=== PATIENT | male | born 1965 | race Caucasian/White ===

== ENCOUNTER 2022-06-22 08:34 | Emergency (ER) | payer MEDICAID ==
[~2022-06-22] VITALS: Ht 170.2 cm; Wt 64.0 kg
[2022-06-22] MEDS ORDERED: LORAZEPAM 2MG/ML CPJ IV ONE (09:15)
[2022-06-22] MEDS ORDERED: SODIUM CHLORIDE 0.9% 1,000 ML IV ONE (09:15)
[2022-06-22 09:20] LABS: BASOPHILS % 0.6 % (0.0-2.0); EOSINOPHILS % 3.5 % (0.0-5.0); HEMATOCRIT. 36.8 % (42.0-52.0); LYMPHOCYTES % 16.6 % (20.0-50.0); MEAN CORPUSCULAR HEMOGLOBIN 28.3 pg (28.0-32.0); MONOCYTES % 9.7 % (2.0-8.0); NEUTROPHILS % 69.6 % (40.0-76.0); PLATELET 492 x1000/uL (130-400); RED CELL DISTRIBUTION WIDTH 14.7 % (11.6-14.6)
[2022-06-22 09:33] LABS: CHLORIDE 96 mEq/L (98-107)
[2022-06-22 11:00] VITALS: BP 134/71
== END 2022-06-22 11:49 | disposition home or self-care (01) ==
LOC: ER 08:34
DX: F41.9 Anxiety disorder, unspecified (principal); E87.1 Hypo-osmolality and hyponatremia; R10.13 Epigastric pain; Z86.39 Personal history of other endocrine, nutritional and metabolic disease
CPT/HCPCS: 36415; 80053; 83690; 84443; 85025; 93005; 96361; 96374; 99284; J2060; J7030

== ENCOUNTER 2022-06-23 09:14 | Emergency (ER) | payer MEDICAID ==
[~2022-06-23] VITALS: Ht 167.6 cm; Wt 76.0 kg
[2022-06-23] MEDS ORDERED: LORAZEPAM 1MG TABLET PO NR (11:45)
[2022-06-23 12:40] VITALS: BP 122/82
== END 2022-06-23 12:45 | disposition home or self-care (01) ==
LOC: ER 09:14
DX: F41.9 Anxiety disorder, unspecified (principal); F32.9 Major depressive disorder, single episode, unspecified; E03.9 Hypothyroidism, unspecified; R94.31 Abnormal electrocardiogram [ECG] [EKG]
CPT/HCPCS: 93005; 99283